=== PATIENT | male | born 1940 | race Caucasian/White ===

== ENCOUNTER 2017-03-25 14:57 | Emergency (ER) | payer MEDICARE, BC ==
--- NOTE | 2017-03-25 16:24 | EDM.PDOC ---
ED HPI GENERAL MEDICAL PROBLEM - General Chief Complaint: General Stated Complaint: LIGHTHEADED / DIZZY Time Seen by Provider: 03/25/17 16:24 Source of Information: Reports: Patient History Limitations: Reports: No limitations - History of Present Illness INITIAL COMMENTS - FREE TEXT/NARRATIVE: pt was very mildly dizzy. The home health care told him he was having some mild bp elevation. Onset: today Duration: Minutes:, Other ( he does feel better now. ) Location: Reports: head, other (pt is mildly lit headed. ) Severity: mild Associated Symptoms: Reports: denies other symptoms - Related Data Allergies Allergy/AdvReac Type Severity Reaction Status Date / Time No Known Allergies Allergy Verified 03/25/17 16:28 Home Meds: Home Meds Aspirin [Ecotrin] 81 mg PO DAILY 04/03/16 [History] Dextran 70/Hypromellose [Genteal Tears 0.1%-0.3% Drop] 1 drop EYEBOTH QID PRN [History] Finasteride 5 mg PO BEDTIME 04/03/16 [History] Latanoprost [Xalatan 0.005% Ophth Soln] 1 drop EYEBOTH BEDTIME 04/03/16 [History ] Simvastatin [Zocor] 10 mg PO DAILY 04/03/16 [History] Tamsulosin [Flomax] 2 cap PO BEDTIME 04/03/16 [History] Past Medical History HEENT History: Reports: Cataract Cardiovascular History: Reports: Hypertension Respiratory History: Reports: COPD Gastrointestinal History: Reports: Cholelithiasis, Other (see below) Other Gastrointestinal History: ulcers Genitourinary History: Reports: Prostate disorder Musculoskeletal History: Reports: Fracture Hematologic History: Reports: Bleeding disorder - Infectious Disease History Infectious Disease History: Reports: Chicken pox, Measles, Mumps, Shingles - Past Surgical History HEENT Surgical History: Reports: Cataract surgery GI Surgical History: Reports: Cholecystectomy, Other (see below) Other GI Surgeries/Procedures: partial gastrectomy, incisional hernia Musculoskeletal Surgical History: Reports: Hip replacement Dermatological Surgical History: Reports: Skin biopsy Social & Family History - Tobacco Use Smoking Status *Q: Never Smoker Years of Tobacco use: 65 - Caffeine Use Caffeine Use: Reports: Coffee - Alcohol Use Days Per Week of Alcohol Use: 1 Number of Drinks Per Day: 1 Total Drinks Per Week: 1 - Recreational Drug Use Recreational Drug Use: No ED ROS GENERAL - Review of Systems Review Of Systems: See Below Constitutional: Reports: no symptoms HEENT: Reports: No symptoms Respiratory: Reports: No Symptoms Cardiovascular: Reports: Other (pt has no chest pain. ) Endocrine: Reports: no symptoms GI/Abdominal: Reports: No symptoms : Reports: no symptoms Musculoskeletal: Reports: no symptoms Skin: Reports: no symptoms ED EXAM, GENERAL - Physical Exam Exam: See Below Free Text/Narrative:: Pt arrived with mild liteheadness. He does not have a headache. Exam Limited By: No limitations General Appearance: alert Ears: normal TMs Nose: normal inspection Throat/Mouth: Normal inspection Head: other ( no pain mild dizziness. ) Neck: normal inspection Respiratory/Chest: no respiratory distress Cardiovascular: regular rate, rhythm Peripheral Pulses: 0: carotid (L) GI/Abdominal: soft, non tender (Male) Exam: Deferred Rectal (Males) Exam: Deferred Back Exam: normal inspection Extremities: normal inspection Neurological: alert, oriented, normal cognition, other ( orthostatic bp s were obtained which showed no sig drop in bp. ) Psychiatric: tearful Course - Vital Signs Last Recorded V/S: Last Vital Signs Temp 36.4 C 03/25/17 15:21 Pulse 71 03/25/17 17:35 Resp 18 03/25/17 17:35 BP 171/101 H 03/25/17 17:35 Pulse Ox 94 L 03/25/17 17:35 Orthostatic Blood Pressure [ 157/99 Standing] Orthostatic Blood Pressure [ 169/93 Sitting] Orthostatic Blood Pressure [ 147/99 Supine] - Orders/Labs/Meds Orders: Active Orders 24 hr Category Date Time Status Cardiac Monitoring [RC] .As Directed Care 03/25/17 16:35 Active Orthostatic Vital Signs [RC] ASDIRECTED Care 03/25/17 16:35 Active UA W/MICROSCOPIC [URIN] Urgent Lab 03/25/17 16:22 Uncollected Labs: Laboratory Tests 03/25/17 03/25/17 Range/Units 16:22 16:22 WBC 5.2 (4.5-11.0) K/uL RBC 4.58 (4.30-5.90) M/uL Hgb 12.0 (12.0-15.0) g/dL Hct 37.3 L (40.0-54.0) % MCV 81 (80-98) fL MCH 26 L (27-31) pg MCHC 32 (32-36) % Plt Count 337 (150-400) K/uL Neut % (Auto) 58 (36-66) % Lymph % (Auto) 18 L (24-44) % [place] % (Auto) 14 H (2-6) % Eos % (Auto) 8 H (2-4) % Baso % (Auto) 2 H (0-1) % Sodium 134 L (140-148) mmol/L Potassium 3.5 L (3.6-5.2) mmol/L Chloride 100 (100-108) mmol/L Carbon Dioxide 30 (21-32) mmol/L Anion Gap 7.5 (5.0-14.0) mmol/L BUN 13 (7-18) mg/dL Creatinine 0.7 L (0.8-1.3) mg/dL Est Cr Clr Drug Dosing 73.50 mL/min Estimated GFR (MDRD) > 60 (>60) Glucose 55 L (74-106) mg/dL Calcium 8.0 L (8.5-10.1) mg/dL Total Bilirubin 0.3 (0.2-1.0) mg/dL AST 17 (15-37) U/L ALT 25 (12-78) U/L Alkaline Phosphatase 74 (46-116) U/L Total Protein 6.3 L (6.4-8.2) g/dL Albumin 3.3 L (3.4-5.0) g/dL Globulin 3.0 (2.3-3.5) g/dL Albumin/Globulin Ratio 1.1 L (1.2-2.2) - Re-Assessments/Exams Free Text/Narrative Re-Assessment/Exam: 03/25/17 17:32 pt has normal lab work. He is in a sinus rhythm. He was ambulated and did well with it. Departure - Departure Time of Disposition: 17:33 Disposition: Home, Self-Care 01 Condition: fair Clinical Impression: Borderline blood pressure Referrals: Jayleen Palmer PA-C [Primary Care Provider] - Forms: ED Department Discharge Care Plan Goals: [facility] the [facility] - My Orders Last 24 Hours: My Active Orders 03/25/17 16:22 UA W/MICROSCOPIC [URIN] Urgent 03/25/17 16:35 Cardiac Monitoring [RC] .As Directed Orthostatic Vital Signs [RC] ASDIRECTED - Assessment/Plan Last 24 Hours: My Active Orders 03/25/17 16:22 UA W/MICROSCOPIC [URIN] Urgent 03/25/17 16:35 Cardiac Monitoring [RC] .As Directed Orthostatic Vital Signs [RC] ASDIRECTED
[2017-03-25 17:35] VITALS: BP 171/101
== END 2017-03-25 18:24 | disposition home or self-care (01) ==
LOC: JP.ED 14:57
DX: R03.0 Elevated blood-pressure reading, without diagnosis of hypertension (principal); I10 Essential (primary) hypertension; J44.9 Chronic obstructive pulmonary disease, unspecified; Z90.49 Acquired absence of other specified parts of digestive tract; Z98.890 Other specified postprocedural states; Z79.899 Other long term (current) drug therapy; Z79.82 Long term (current) use of aspirin
CPT/HCPCS: 36415; 80053; 81001; 85025; 99282; 99284

== ENCOUNTER 2017-09-21 02:13 | Inpatient (IN) | payer MEDICARE, BC ==
[2017-09-21] MEDS ORDERED: Albuterol 0.083% 2.5 MG/3 ML Neb Soln NEB ONE ×2 (02:35→03:44)
[2017-09-21] MEDS ORDERED: methylPREDNISolone Sodium Succinate 125 MG/2 ML SDV IVPUSH ONE (02:41)
[2017-09-21] MEDS ORDERED: Sodium Chloride 0.9% 10 ML Syringe FLUSH PRN (02:42)
--- NOTE | 2017-09-21 02:44 | EDM.PDOC ---
ED HPI GENERAL MEDICAL PROBLEM - General Chief Complaint: Respiratory Problem Stated Complaint: [facility] Time Seen by Provider: 09/21/17 02:43 Source of Information: Reports: Patient History Limitations: Reports: No Limitations - History of Present Illness Onset: Other (pt was getting sob tonight. ) Duration: Hour(s): Location: Reports: Chest Associated Symptoms: Reports: Cough, Shortness of Breath denies pain Pain Score (Numeric/FACES): 0 - Related Data Allergies Allergy/AdvReac Type Severity Reaction Status Date / Time No Known Allergies Allergy Verified 09/21/17 02:19 Home Meds: Home Meds Aspirin [Ecotrin] 81 mg PO DAILY 04/03/16 [History] Finasteride 5 mg PO BEDTIME 04/03/16 [History] Latanoprost [Xalatan 0.005% Ophth Soln] 1 drop EYEBOTH BEDTIME 04/03/16 [History ] Simvastatin [Zocor] 10 mg PO BEDTIME 04/03/16 [History] Tamsulosin [Flomax] 2 cap PO BEDTIME 04/03/16 [History] Albuterol Sulfate [Proair Respiclick] 90 mcg IH Q4H PRN 09/21/17 [History] Albuterol/Ipratropium [DuoNeb 3.0-0.5 MG/3 ML] 3 ml INH Q4H PRN 09/21/17 [ History] Budesonide/Formoterol [Symbicort 160-4.5 MCG] 2 puff INH BID 09/21/17 [History] Lisinopril 10 mg PO DAILY 09/21/17 [History] Loratadine [Claritin] 10 mg PO DAILY 09/21/17 [History] guaiFENesin [Guaifenesin] 200 mg PO BID PRN 09/21/17 [History] Past Medical History HEENT History: Reports: Hard of Hearing, Impaired Vision Cardiovascular History: Reports: High Cholesterol, Hypertension Respiratory History: Reports: COPD Gastrointestinal History: Reports: Cholelithiasis, Hiatal Hernia Other Gastrointestinal History: ulcers Genitourinary History: Reports: Prostate Disorder, Renal Calculus Musculoskeletal History: Reports: Arthritis Hematologic History: Reports: Bleeding Disorder - Infectious Disease History Infectious Disease History: Reports: Chicken Pox, Measles, Mumps, Rubella, Shingles - Past Surgical History HEENT Surgical History: Reports: Cataract Surgery GI Surgical History: Reports: Appendectomy, Cholecystectomy, Colonoscopy, Hernia Repair/Other Male Surgical History: Reports: Lithotripsy (ESWL) Musculoskeletal Surgical History: Reports: Hip Replacement, Other (See Below) Other Musculoskeletal Surgeries/Procedures:: left hip replacement Dermatological Surgical History: Reports: Skin Biopsy Social & Family History - Tobacco Use Smoking Status *Q: Former Smoker Years of Tobacco use: 65 Used Tobacco, but Quit: Yes Month Tobacco Last Used: May 25 2015 - Caffeine Use Caffeine Use: Reports: Coffee - Alcohol Use Days Per Week of Alcohol Use: 1 Number of Drinks Per Day: 1 Total Drinks Per Week: 1 - Recreational Drug Use Recreational Drug Use: No ED ROS GENERAL - Review of Systems Review Of Systems: See Below Constitutional: Reports: No Symptoms, Chills HEENT: Reports: No Symptoms Respiratory: Reports: Shortness of Breath, Wheezing, Cough, Sputum Cardiovascular: Reports: No Symptoms Endocrine: Reports: No Symptoms GI/Abdominal: Reports: No Symptoms : Reports: No Symptoms ED EXAM, GENERAL - Physical Exam Exam: See Below Free Text/Narrative:: pt arrived with a history of sob and raising alot of sputum in the past few hours. The sputum is very green looking. He has a history of copd. Exam Limited By: No Limitations General Appearance: Alert, Mild Distress Ears: Normal TMs Nose: Normal Inspection Throat/Mouth: Normal Inspection Head: Atraumatic Neck: Normal Inspection Respiratory/Chest: Decreased Breath Sounds, Rhonchi, Wheezing Cardiovascular: Regular Rate, Rhythm GI/Abdominal: Soft, Non-Tender (Male) Exam: Deferred Rectal (Males) Exam: Deferred Back Exam: Normal Inspection Extremities: Other (pt has a trace edema. He does wear support hose. ) Neurological: Alert, Oriented, Normal Cognition Psychiatric: Normal Affect Course - Vital Signs Last Recorded V/S: Last Vital Signs Temp 36.0 C 09/21/17 03:54 Pulse 79 09/21/17 03:54 Resp 22 H 09/21/17 03:54 BP 131/75 09/21/17 03:54 Pulse Ox 91 L 09/21/17 03:54 - Orders/Labs/Meds Orders: Active Orders 24 hr Category Date Time Status RT Aerosol Therapy [RC] ASDIRECTED Care 09/21/17 02:36 Active RT Aerosol Therapy [RC] ASDIRECTED Care 09/21/17 03:45 Active Chest 1V Frontal [CR] Stat Exams 09/21/17 02:35 Taken CULTURE RESPIRATORY + SMEAR [RM] Stat Lab 09/21/17 03:06 Results Levofloxacin/Dextrose 5%-Water [Levaquin in D5W 500 MG/ Med 09/21/17 03:43 Active 100 ML] 500 mg Premix Bag 1 bag IV ONETIME Sodium Chloride 0.9% [Normal Saline] 1,000 ml Med 09/21/17 03:45 Active IV ASDIRECTED Sodium Chloride 0.9% [Saline Flush] Med 09/21/17 02:42 Active 10 ml FLUSH ASDIRECTED PRN Saline Lock Insert [OM.PC] Routine Oth 09/21/17 02:42 Ordered Medication Orders Levofloxacin/Dextrose 500 mg/ (Premix) 100 mls @ 100 mls/hr IV ONETIME ONE Stop: 09/21/17 04:42 Last Admin: 09/21/17 04:11 Dose: 100 mls/hr Sodium Chloride (Normal Saline) 1,000 mls @ 150 mls/hr IV ASDIRECTED CHAYITO Last Admin: 09/21/17 04:10 Dose: 150 mls/hr Sodium Chloride (Saline Flush) 10 ml FLUSH ASDIRECTED PRN PRN Reason: Keep Vein Open Last Admin: 09/21/17 02:59 Dose: 10 ml Labs: Laboratory Tests 09/21/17 09/21/17 Range/Units 02:50 02:50 WBC 5.7 (4.5-11.0) K/uL RBC 4.61 (4.30-5.90) M/uL Hgb 12.6 (12.0-15.0) g/dL Hct 39.0 L (40.0-54.0) % MCV 85 (80-98) fL MCH 27 (27-31) pg MCHC 32 (32-36) % Plt Count 273 (150-400) K/uL Neut % (Auto) 68 H (36-66) % Lymph % (Auto) 13 L (24-44) % [place] % (Auto) 7 H (2-6) % Eos % (Auto) 11 H (2-4) % Baso % (Auto) 1 (0-1) % Sodium 135 L (140-148) mmol/L Potassium 4.2 (3.6-5.2) mmol/L Chloride 98 L (100-108) mmol/L Carbon Dioxide 31 (21-32) mmol/L Anion Gap 10.2 (5.0-14.0) mmol/L BUN 13 (7-18) mg/dL Creatinine 0.8 (0.8-1.3) mg/dL Est Cr Clr Drug Dosing 61.25 mL/min Estimated GFR (MDRD) > 60 (>60) Glucose 116 H (74-106) mg/dL Calcium 8.7 (8.5-10.1) mg/dL Total Bilirubin 0.4 (0.2-1.0) mg/dL AST 19 (15-37) U/L ALT 24 (12-78) U/L Alkaline Phosphatase 78 (46-116) U/L Total Protein 6.7 (6.4-8.2) g/dL Albumin 3.5 (3.4-5.0) g/dL Globulin 3.2 (2.3-3.5) g/dL Albumin/Globulin Ratio 1.1 L (1.2-2.2) Meds: Medications Generic Name Dose Route Start Last Admin Trade Name Freq PRN Reason Stop Dose Admin Levofloxacin/Dextrose 500 mg/ 100 mls @ 100 mls/hr 09/21/17 03:43 09/21/17 04 :11 Premix IV 09/21/17 04:42 100 mls/hr ONETIME ONE Administration Sodium Chloride 1,000 mls @ 150 mls/hr 09/21/17 03:45 09/21/17 04:10 Normal Saline IV 150 mls/hr ASDIRECTED CHAYITO Administration Sodium Chloride 10 ml 09/21/17 02:42 09/21/17 02:59 Saline Flush FLUSH 10 ml ASDIRECTED PRN Administration Keep Vein Open Discontinued Medications Generic Name Dose Route Start Last Admin Trade Name Freq PRN Reason Stop Dose Admin Albuterol 2.5 mg 09/21/17 02:35 09/21/17 02:44 Proventil Neb Soln NEB 09/21/17 02:36 2.5 mg ONETIME ONE Administration Albuterol 2.5 mg 09/21/17 03:44 09/21/17 04:00 Proventil Neb Soln NEB 09/21/17 03:45 2.5 mg ONETIME ONE Administration Methylprednisolone Sodium Succinate 125 mg 10/31/17 02:41 09/21/17 02:59 Solu-Medrol IVPUSH 09/21/17 02:42 125 mg ONETIME ONE Administration - Re-Assessments/Exams Free Text/Narrative Re-Assessment/Exam: 09/21/17 03:41 Pt was given solumedrol 125 iv and he was given an albuterol neb. He is breathing easier. His chest xray does not reveal a definite infiltrate. He has a wbc which is not sig elevated. His o2 sats are mantaining. 09/21/17 04:22 [facility] stay for his copd he will be admitted here. Departure - Departure Time of Disposition: 04:23 Disposition: Admitted As Inpatient 65 Condition: Fair Clinical Impression: COPD (chronic obstructive pulmonary disease) with acute bronchitis - Discharge Information Referrals: PCP,None [Primary Care Provider] - Forms: ED Department Discharge Care Plan Goals: admit to [facility] - My Orders Last 24 Hours: My Active Orders 09/21/17 02:35 Chest 1V Frontal [CR] Stat 09/21/17 02:36 RT Aerosol Therapy [RC] ASDIRECTED 09/21/17 02:42 Sodium Chloride 0.9% [Saline Flush] 10 ml FLUSH ASDIRECTED PRN Saline Lock Insert [OM.PC] Routine 09/21/17 03:06 CULTURE RESPIRATORY + SMEAR [RM] Stat 09/21/17 03:43 Levofloxacin/Dextrose 5%-Water [Levaquin in D5W 500 MG/100 ML] 500 mg Premix Bag 1 bag IV ONETIME 09/21/17 03:45 RT Aerosol Therapy [RC] ASDIRECTED Sodium Chloride 0.9% [Normal Saline] 1,000 ml IV ASDIRECTED - Assessment/Plan Last 24 Hours: My Active Orders 09/21/17 02:35 Chest 1V Frontal [CR] Stat 09/21/17 02:36 RT Aerosol Therapy [RC] ASDIRECTED 09/21/17 02:42 Sodium Chloride 0.9% [Saline Flush] 10 ml FLUSH ASDIRECTED PRN Saline Lock Insert [OM.PC] Routine 09/21/17 03:06 CULTURE RESPIRATORY + SMEAR [RM] Stat 09/21/17 03:43 Levofloxacin/Dextrose 5%-Water [Levaquin in D5W 500 MG/100 ML] 500 mg Premix Bag 1 bag IV ONETIME 09/21/17 03:45 RT Aerosol Therapy [RC] ASDIRECTED Sodium Chloride 0.9% [Normal Saline] 1,000 ml IV ASDIRECTED
[2017-09-21] MEDS ORDERED: Levofloxacin/Dextrose 5%-Water 500 MG in Premix Bag 1 BAG IV ONE (03:43)
[2017-09-21] MEDS ORDERED: Sodium Chloride 0.9% 1,000 ML IV SCH ×2 (03:45→05:50)
--- NOTE | 2017-09-21 05:48 | PCM.HP ---
H&P History of Present Illness - General Date of Service: 09/21/17 Admit Problem/Dx: Admission Diagnosis/Problem Admission Diagnosis/Problem COPD, Moderate chronic obstructive pulmonary disease Source of Information: Patient, Provider, RN History Limitations: Reports: No Limitations - History of Present Illness Initial Comments - Free Text/Narative: ER Course pt arrived with a history of sob and raising a lot of sputum in the past few hours. The sputum is very green looking. He has a history of copd. General Appearance: Alert, Mild Distress Pt was given solumedrol 125 iv and he was given an albuterol neb. He is breathing easier. His chest xray does not reveal a definite infiltrate. He has a wbc which is not sig elevated. His o2 sats are maintaining. [facility] and since this may be a short stay for his copd he will be admitted here. Onset of Symptoms: Reports: Sudden Duration of Symptoms: Reports: Hour(s):, Getting Worse Location: Reports: Generalized Quality: Reports: Other (shortness of breath) Severity: Severe Improves with: Reports: None Worsens with: Reports: None Associated Symptoms: Reports: Cough, Shortness of Breath, Weakness denies pain Pain Score (Numeric/FACES): 0 - Related Data Allergies/Adverse Reactions: Allergies Allergy/AdvReac Type Severity Reaction Status Date / Time No Known Allergies Allergy Verified 09/21/17 02:19 Home Medications: Home Meds Aspirin [Ecotrin] 81 mg PO DAILY 04/03/16 [History] Finasteride 5 mg PO BEDTIME 04/03/16 [History] Latanoprost [Xalatan 0.005% Ophth Soln] 1 drop EYEBOTH BEDTIME 04/03/16 [History ] Simvastatin [Zocor] 10 mg PO BEDTIME 04/03/16 [History] Tamsulosin [Flomax] 2 cap PO BEDTIME 04/03/16 [History] Albuterol Sulfate [Proair Respiclick] 90 mcg IH Q4H PRN 09/21/17 [History] Albuterol/Ipratropium [DuoNeb 3.0-0.5 MG/3 ML] 3 ml INH Q4H PRN 09/21/17 [ History] Budesonide/Formoterol [Symbicort 160-4.5 MCG] 2 puff INH BID 09/21/17 [History] Lisinopril 10 mg PO DAILY 09/21/17 [History] Loratadine [Claritin] 10 mg PO DAILY 09/21/17 [History] guaiFENesin [Guaifenesin] 200 mg PO BID PRN 09/21/17 [History] Past Medical History HEENT History: Reports: Hard of Hearing, Impaired Vision Cardiovascular History: Reports: High Cholesterol, Hypertension Respiratory History: Reports: COPD Gastrointestinal History: Reports: Cholelithiasis, Hiatal Hernia Other Gastrointestinal History: ulcers Genitourinary History: Reports: Prostate Disorder, Renal Calculus Musculoskeletal History: Reports: Arthritis Hematologic History: Reports: Bleeding Disorder - Infectious Disease History Infectious Disease History: Reports: Chicken Pox, Measles, Mumps, Rubella, Shingles - Past Surgical History HEENT Surgical History: Reports: Cataract Surgery GI Surgical History: Reports: Appendectomy, Cholecystectomy, Colonoscopy, Hernia Repair/Other Male Surgical History: Reports: Lithotripsy (ESWL) Musculoskeletal Surgical History: Reports: Hip Replacement, Other (See Below) Other Musculoskeletal Surgeries/Procedures:: left hip replacement Dermatological Surgical History: Reports: Skin Biopsy Social & Family History - Tobacco Use Smoking Status *Q: Former Smoker Years of Tobacco use: 65 Used Tobacco, but Quit: Yes Month Tobacco Last Used: May 25 2015 - Caffeine Use Caffeine Use: Reports: Coffee - Alcohol Use Days Per Week of Alcohol Use: 1 Number of Drinks Per Day: 1 Total Drinks Per Week: 1 - Recreational Drug Use Recreational Drug Use: No - Living Situation & Occupation Living situation: Reports: Single, Alone Occupation: Retired (lives alone in [place], [place].) H&P Review of Systems - Review of Systems: Review Of Systems: See Below General: Reports: Weakness, Fatigue HEENT: Reports: No Symptoms Pulmonary: Reports: Shortness of Breath, Wheezing, Pleuritic Chest Pain, Cough, Sputum Cardiovascular: Reports: No Symptoms Gastrointestinal: Reports: No Symptoms Genitourinary: Reports: No Symptoms Musculoskeletal: Reports: No Symptoms Skin: Reports: No Symptoms Psychiatric: Reports: No Symptoms Neurological: Reports: No Symptoms Hematologic/Lymphatic: Reports: No Symptoms Immunologic: Reports: No Symptoms Exam - Exam Exam: See Below - Vital Signs Vital Signs: Last Vital Signs Temp 36.0 C 09/21/17 03:54 Pulse 79 09/21/17 03:54 Resp 22 H 09/21/17 03:54 BP 131/75 09/21/17 03:54 Pulse Ox 91 L 09/21/17 03:54 Weight: 58.967 kg - Exam Quality Assessment: Supplemental Oxygen, DVT Prophylaxis General: Alert, Oriented, Cooperative, Mild Distress HEENT: PERRLA, Conjunctiva Clear, Hearing Intact, Mucosa Moist & [place], Nares Patent, Pupils Equal Neck: Supple, Trachea Midline Lungs: Decreased Breath Sounds, Rales, Rhonchi, Wheezing Cardiovascular: Regular Rate, Regular Rhythm, Normal S1, Normal S2 GI/Abdominal Exam: Normal Bowel Sounds, Soft, Non-Tender, No Organomegaly, No Distention, No Abnormal Bruit, No Mass, Pelvis Stable (Male) Exam: Deferred Rectal (Males) Exam: Deferred Back Exam: Normal Inspection, Full Range of Motion Extremities: Non-Tender, No Pedal Edema, Normal Capillary Refill - Patient Data Lab Results Last 24 hrs: Laboratory Results - last 24 hr 09/21/17 09/21/17 Range/Units 02:50 02:50 WBC 5.7 (4.5-11.0) K/uL RBC 4.61 (4.30-5.90) M/uL Hgb 12.6 (12.0-15.0) g/dL Hct 39.0 L (40.0-54.0) % MCV 85 (80-98) fL MCH 27 (27-31) pg MCHC 32 (32-36) % Plt Count 273 (150-400) K/uL Neut % (Auto) 68 H (36-66) % Lymph % (Auto) 13 L (24-44) % [place] % (Auto) 7 H (2-6) % Eos % (Auto) 11 H (2-4) % Baso % (Auto) 1 (0-1) % Sodium 135 L (140-148) mmol/L Potassium 4.2 (3.6-5.2) mmol/L Chloride 98 L (100-108) mmol/L Carbon Dioxide 31 (21-32) mmol/L Anion Gap 10.2 (5.0-14.0) mmol/L BUN 13 (7-18) mg/dL Creatinine 0.8 (0.8-1.3) mg/dL Est Cr Clr Drug Dosing 61.25 mL/min Estimated GFR (MDRD) > 60 (>60) Glucose 116 H (74-106) mg/dL Calcium 8.7 (8.5-10.1) mg/dL Total Bilirubin 0.4 (0.2-1.0) mg/dL AST 19 (15-37) U/L ALT 24 (12-78) U/L Alkaline Phosphatase 78 (46-116) U/L Total Protein 6.7 (6.4-8.2) g/dL Albumin 3.5 (3.4-5.0) g/dL Globulin 3.2 (2.3-3.5) g/dL Albumin/Globulin Ratio 1.1 L (1.2-2.2) Result Diagrams: 09/21/17 02:50 09/21/17 02:50 Jarek Results Last 24 hrs: Microbiology 09/21/17 03:06 Gram Stain - Final Sputum - Expectorated *Q Meaningful Use (ADM) - VTE *Q VTE Criteria *Q: - Stroke *Q Stroke Criteria *Q: - AMI *Q AMI Criteria *Q: - Problem List (1) COPD (chronic obstructive pulmonary disease) with acute bronchitis SNOMED Code(s): 639523018382866 ICD Code: J44.0 - CHRONIC OBSTRUCTIVE PULMON DISEASE W ACUTE LOWER RESP INFCT ; J20.9 - ACUTE BRONCHITIS, UNSPECIFIED Status: Acute Priority: High Current Visit: Yes Problem List Initiated/Reviewed/Updated: Yes Orders Last 24hrs: Active Orders 24 hr Category Date Time Status Patient Status Manage Transfer [TRANSFER] Routine ADT 09/21/17 05:14 Active RT Aerosol Therapy [RC] ASDIRECTED Care 09/21/17 02:36 Active RT Aerosol Therapy [RC] ASDIRECTED Care 09/21/17 03:45 Active Chest 1V Frontal [CR] Stat Exams 09/21/17 02:35 Taken CULTURE RESPIRATORY + SMEAR [RM] Stat Lab 09/21/17 03:06 Results Sodium Chloride 0.9% [Normal Saline] 1,000 ml Med 09/21/17 03:45 Active IV ASDIRECTED Sodium Chloride 0.9% [Saline Flush] Med 09/21/17 02:42 Active 10 ml FLUSH ASDIRECTED PRN Saline Lock Insert [OM.PC] Routine Oth 09/21/17 02:42 Ordered Resuscitation Status Routine Resus Stat 09/21/17 05:17 Ordered Medication Orders Sodium Chloride (Normal Saline) 1,000 mls @ 150 mls/hr IV ASDIRECTED CHAYITO Last Admin: 09/21/17 04:10 Dose: 150 mls/hr Sodium Chloride (Saline Flush) 10 ml FLUSH ASDIRECTED PRN PRN Reason: Keep Vein Open Last Admin: 09/21/17 02:59 Dose: 10 ml Assessment/Plan Comment:: ASSESSMENT AND PLAN ER Course; pt arrived with a history of sob and raising a lot of sputum in the past few hours. The sputum is very green looking. He has a history of copd. General Appearance: Alert, Mild Distress. Pt was given solumedrol 125 IV and he was given an albuterol neb. He is breathing easier. His chest xray does not reveal a definite infiltrate. He has a wbc which is not sig elevated. His o2 sats are maintaining. [facility] was contacted and okay to treat here for COPD. COPD -Admit to [address] [place] [address] for further monitoring -IV Fluids for rehydration NS at 125 mL per hour -IV Antibiotic; Levoquin 1 gram IV every 24 hours -IV Solumedrol 62.5mg every 8 hours -schedule Duo Nebs treatment every 6 hours -prn Albuterol nebulizer -Robitussin AC 10 ml po every 4 to 6 hours prn cough -Advise to notify nurses of any chest pain or other symptoms Maintenance issues -Orders home meds: order -Nutrition: regular diet -Reyna catheter not indicated at this time -DVT: Lovonox 30mg subcut daily -PPI; IV Protonix 40mg daily -consult OT for discharge planning -consult PT for strengthening. CODE STATUS: FULL Admission status: Admit to [address] [place] [address] Admission justification. This patient will be admitted for inpatient services and is medically appropriate meeting medical necessity for inpatient admission as outlined in my documentation. I reasonably expect the patient will require inpatient services that span. Time over 2 midnights. I reasonably expect this patient to be discharged or transferred within 96 hours after admission to the critical access hospital. Disposition; home Primary care provider: [facility] Hospitalist: Dr. Jiménez
[2017-09-21] MEDS ORDERED: Albuterol 0.083% 2.5 MG/3 ML Neb Soln NEB PRN ×2 (05:50)
[2017-09-21] MEDS ORDERED: Morphine 2 MG/ML Syringe IVPUSH PRN (05:50)
[2017-09-21] MEDS ORDERED: Ondansetron 4 MG Tab.DIS PO PRN (05:50)
[2017-09-21] MEDS ORDERED: Docusate Sodium 100 MG Cap PO PRN (05:50)
[2017-09-21] MEDS ORDERED: Zolpidem 5 MG Tab PO PRN (05:50)
[2017-09-21] MEDS ORDERED: oxyCODONE 5 MG Tab PO PRN (05:50)
[2017-09-21] MEDS ORDERED: Bisacodyl 5 MG Tab PO PRN (05:50)
[2017-09-21] MEDS ORDERED: Codeine/guaiFENesin 100mg-10 MG/5 ML Syrup 10 ML Cup PO PRN (05:58)
[2017-09-21] MEDS ORDERED: Albuterol/Ipratropium 3.0-0.5 MG/3 ML Neb Soln NEB PRN ×2 (06:00→07:18)
[2017-09-21] MEDS ORDERED: Pantoprazole 40 MG Vial IVPUSH SCH (07:30)
[2017-09-21] MEDS: Albuterol/Ipratropium 3.0-0.5 MG/3 ML Neb Soln NEB SCH ×4 (07:35→20:38)
[2017-09-21] MEDS: Tiotropium Inhaler 18 MCG Inhalation Powder Cap Kit of 5 INH SCH (08:21)
[2017-09-21] MEDS: methylPREDNISolone Sodium Succinate 125 MG/2 ML SDV IVPUSH SCH ×2 (08:28→15:47)
[2017-09-21] MEDS: Lisinopril 10 MG Tab PO SCH (08:28)
[2017-09-21] MEDS: Pantoprazole 40 MG Tab.CR PO SCH (08:28)
[2017-09-21] MEDS: Enoxaparin 40 MG/0.4 ML Syringe SUBCUT SCH (08:28)
--- NOTE | 2017-09-21 08:28 | CR ---
Chest 1V Frontal HISTORY: sob COMPARISON: 03/02/2009 FINDINGS: Lungs appear clear and mildly hyperinflated. Cardiomediastinal silhouette is within normal limits. No vascular redistribution or pleural fluid can be seen. Bony structures and soft tissues are unremarka ble. IMPRESSION: Mild hyperinflation. No acute chest abnormality identified.
[2017-09-21] MEDS ORDERED: methylPREDNISolone Sodium Succinate 40 MG/1 ML SDV IV SCH (08:30)
[2017-09-21] MEDS ORDERED: Enoxaparin 30 MG/0.3 ML Syringe SUBCUT SCH (09:00)
[2017-09-21] MEDS: Acetaminophen 325 MG Tab PO PRN ×2 (10:53→20:52)
[2017-09-21] MEDS ORDERED: Melatonin 3 MG Tab PO SCH (16:30)
--- NOTE | 2017-09-21 18:44 | PCM.PN ---
- General Info Date of Service: 09/21/17 Subjective Update: This patient is a 77-year-old gentleman who was admitted with probable bronchitis causing COPD exacerbation. He's felt improved since admission with less shortness of breath and cough. Vital signs have been stable and he has remained afebrile area Functional Status: Reports: Tolerating Diet - Review of Systems General: Reports: Weakness. Denies: Fever, Chills Pulmonary: Reports: Shortness of Breath, Cough, Wheezing. Denies: Pleuritic Chest Pain, Sputum, Hemoptysis Cardiovascular: Reports: Dyspnea on Exertion. Denies: Chest Pain, Palpitations , Orthopnea, PND, Edema, Lightheadedness Gastrointestinal: Reports: No Symptoms - Patient Data Vitals - Most Recent: Last Vital Signs Temp 97.3 F 09/21/17 16:04 Pulse 87 09/21/17 16:04 Resp 18 09/21/17 16:04 BP 152/73 H 09/21/17 16:04 Pulse Ox 95 09/21/17 16:04 Weight - Most Recent: 127 lb 12.796 oz I&O - Last 24 Hours: Intake & Output 09/21/17 09/21/17 09/21/17 06:59 14:59 22:59 Intake Total 360 480 Balance 360 480 Med Orders - Current: Current Medications Acetaminophen (Tylenol) 650 mg PO Q4H PRN PRN Reason: Pain (Mild 1-3)/fever Last Admin: 09/21/17 10:53 Dose: 650 mg Albuterol (Proventil Neb Soln) 2.5 mg NEB Q4H PRN PRN Reason: Shortness Of Breath/wheezing Albuterol/Ipratropium (Duoneb 3.0-0.5 Mg/3 Ml) 3 ml NEB QIDRT [facility] Last Admin: 09/21/17 14:38 Dose: 3 ml Albuterol/Ipratropium (Duoneb 3.0-0.5 Mg/3 Ml) 3 ml NEB QID PRN PRN Reason: Shortness of Breath Albuterol/Ipratropium (Duoneb 3.0-0.5 Mg/3 Ml) 3 ml NEB ASDIRECTED PRN PRN Reason: Shortness of Breath Bisacodyl (Dulcolax) 5 mg PO DAILY PRN PRN Reason: Constipation Docusate Sodium (Colace) 100 mg PO BID PRN PRN Reason: Constipation Enoxaparin Sodium (Lovenox) 40 mg SUBCUT DAILY [facility] Last Admin: 09/21/17 08:28 Dose: 40 mg Finasteride (Proscar) 5 mg PO BEDTIME [facility] Guaifenesin/Codeine Phosphate (Robitussin Ac) 10 ml PO Q4H PRN PRN Reason: Cough Levofloxacin/Dextrose 500 mg/ (Premix) 100 mls @ 100 mls/hr IV Q24H [facility] Stop: 09/29/17 04:01 Latanoprost (Xalatan 0.005% Ophth Soln) 0 ml EYEBOTH BEDTIME [facility] Lisinopril (Prinivil) 10 mg PO DAILY [facility] Last Admin: 09/21/17 08:28 Dose: 10 mg Melatonin (Melatonin) 9 mg PO BEDTIME [facility] Methylprednisolone Sodium Succinate (Solu-Medrol) 40 mg IVPUSH Q8H [facility] Morphine Sulfate (Morphine) 2 mg IVPUSH Q2H PRN PRN Reason: Pain (severe 7-10) Ondansetron HCl (Zofran Odt) 4 mg PO Q6H PRN PRN Reason: Nausea able to take PO Oxycodone HCl (Oxycodone) 5 mg PO Q4H PRN PRN Reason: Pain (moderate 4-6) Pantoprazole Sodium (Protonix) 40 mg PO ACBREAKFAST [facility] Last Admin: 09/21/17 08:28 Dose: 40 mg Simvastatin (Zocor) 10 mg PO BEDTIME [facility] Tamsulosin HCl (Flomax) 0.8 mg PO BEDTIME [facility] Tiotropium [place] (Spiriva Handihaler) 18 mcg INH DAILY [facility] Last Admin: 09/21/17 08:21 Dose: 1 cap Discontinued Medications Albuterol (Proventil Neb Soln) 2.5 mg NEB ONETIME ONE Stop: 09/21/17 02:36 Last Admin: 09/21/17 02:44 Dose: 2.5 mg Albuterol (Proventil Neb Soln) 2.5 mg NEB ONETIME ONE Stop: 09/21/17 03:45 Last Admin: 09/21/17 04:00 Dose: 2.5 mg Levofloxacin/Dextrose 500 mg/ (Premix) 100 mls @ 100 mls/hr IV ONETIME ONE Stop: 09/21/17 04:42 Last Admin: 09/21/17 04:11 Dose: 100 mls/hr Sodium Chloride (Normal Saline) 1,000 mls @ 150 mls/hr IV ASDIRECTED [facility] Last Admin: 09/21/17 04:10 Dose: 150 mls/hr Sodium Chloride (Normal Saline) 1,000 mls @ 100 mls/hr IV ASDIRECTED [facility] Methylprednisolone Sodium Succinate (Solu-Medrol) 125 mg IVPUSH ONETIME ONE Stop: 09/21/17 02:42 Last Admin: 09/21/17 02:59 Dose: 125 mg Methylprednisolone Sodium Succinate (Solu-Medrol) 62.5 mg IVPUSH Q6H [facility] Last Admin: 09/21/17 15:47 Dose: 62.5 mg Sodium Chloride (Saline Flush) 10 ml FLUSH ASDIRECTED PRN PRN Reason: Keep Vein Open Last Admin: 09/21/17 02:59 Dose: 10 ml Zolpidem Tartrate (Ambien) 5 mg PO BEDTIME PRN PRN Reason: Sleep - Exam Quality Assessment: Supplemental Oxygen, DVT Prophylaxis General: Alert, Oriented, Cooperative, No Acute Distress Lungs: Decreased Breath Sounds, Wheezing. No: Crackles, Rales, Rhonchi Cardiovascular: Regular Rate, Regular Rhythm, No Murmurs GI/Abdominal Exam: Normal Bowel Sounds, Soft, Non-Tender, No Organomegaly, No Distention Extremities: Non-Tender, No Pedal Edema Skin: Warm, Dry, Intact - Problem List Review Problem List Initiated/Reviewed/Updated: Yes - My Orders Last 24 Hours: My Active Orders 09/21/17 18:37 Convert IV to Saline Lock [OM.PC] Routine 09/21/17 18:45 methylPREDNISolone Sod Succ [Solu-MEDROL] 40 mg IVPUSH Q8H 09/21/17 21:00 Melatonin 9 mg PO BEDTIME - Plan Plan:: ASSESSMENT AND PLAN COPD EXACERBATION SECONDARY TO BRONCHITIS-improved since admission with less shortness of breath and cough -Saline lock IV -IV Antibiotic; Levoquin 1 gram IV every 24 hours -IV Solumedrol 40 mg every 8 hours -schedule Duo Nebs treatment every 6 hours -prn Albuterol nebulizer -Robitussin AC 10 ml po every 4 to 6 hours prn cough -Advise to notify nurses of any chest pain or other symptoms Maintenance issues -Orders home meds: order -Nutrition: regular diet -Reyna catheter not indicated at this time -DVT: Lovonox 30mg subcut daily -PPI; IV Protonix 40mg daily -consult OT for discharge planning -consult PT for strengthening. CODE STATUS: FULL Admission status: Admit to [address] [place] [address] Admission justification. This patient will be admitted for inpatient services and is medically appropriate meeting medical necessity for inpatient admission as outlined in my documentation. I reasonably expect the patient will require inpatient services that span. Time over 2 midnights. I reasonably expect this patient to be discharged or transferred within 96 hours after admission to the [facility]. Disposition; home Primary care provider: [facility] Hospitalist: Dr. Jiménez
[2017-09-21] MEDS: Latanoprost 0.005% Ophth Soln 2.5 ML Bottle EYEBOTH SCH (20:51)
[2017-09-21] MEDS: Melatonin 3 MG Tab PO SCH (20:52)
[2017-09-21] MEDS: Tamsulosin 0.4 MG Cap.ER PO SCH (20:53)
[2017-09-21] MEDS: Simvastatin 20 MG Tab PO SCH (20:53)
[2017-09-21] MEDS: Finasteride 5 MG Tab PO SCH (20:53)
[2017-09-21] MEDS: methylPREDNISolone Sodium Succinate 40 MG/1 ML SDV IVPUSH SCH (22:41)
[2017-09-22] MEDS ORDERED: Levofloxacin/Dextrose 5%-Water 500 MG in Premix Bag 1 BAG IV SCH (04:00)
[2017-09-22] MEDS: Albuterol/Ipratropium 3.0-0.5 MG/3 ML Neb Soln NEB SCH ×4 (07:10→19:59)
[2017-09-22] MEDS: Pantoprazole 40 MG Tab.CR PO SCH (08:29)
[2017-09-22] MEDS: methylPREDNISolone Sodium Succinate 40 MG/1 ML SDV IVPUSH SCH (08:29)
[2017-09-22] MEDS: Lisinopril 10 MG Tab PO SCH (08:29)
[2017-09-22] MEDS: Enoxaparin 40 MG/0.4 ML Syringe SUBCUT SCH (08:30)
[2017-09-22] MEDS: Tiotropium Inhaler 18 MCG Inhalation Powder Cap Kit of 5 INH SCH (09:33)
--- NOTE | 2017-09-22 14:09 | PCM.PN ---
- General Info Date of Service: 09/22/17 Subjective Update: This patient has noted further improvement in shortness of breath and cough over the past 24 hours. He is been up ambulating without use of supplemental oxygen and his cough is essentially resolved. Still reports that he feels fairly weak and requires some assistance with transfers and ambulation. Functional Status: Reports: Pain Controlled, Tolerating Diet, Ambulating - Review of Systems General: Reports: Weakness. Denies: Fever, Chills Pulmonary: Reports: Shortness of Breath, Wheezing. Denies: Pleuritic Chest Pain , Cough, Sputum Cardiovascular: Reports: Dyspnea on Exertion. Denies: Chest Pain, Palpitations , Orthopnea, PND, Edema, Lightheadedness Gastrointestinal: Reports: No Symptoms - Patient Data Vitals - Most Recent: Last Vital Signs Temp 96.6 F 09/22/17 12:04 Pulse 98 09/22/17 12:04 Resp 16 09/22/17 12:04 BP 114/54 L 09/22/17 12:04 Pulse Ox 95 09/22/17 12:04 Weight - Most Recent: 127 lb 12.796 oz I&O - Last 24 Hours: Intake & Output 09/21/17 09/22/17 09/22/17 22:59 06:59 14:59 Intake Total 676 100 880 Balance 676 100 880 Med Orders - Current: Current Medications Acetaminophen (Tylenol) 650 mg PO Q4H PRN PRN Reason: Pain (Mild 1-3)/fever Last Admin: 09/21/17 20:52 Dose: 650 mg Albuterol (Proventil Neb Soln) 2.5 mg NEB Q4H PRN PRN Reason: Shortness Of Breath/wheezing Albuterol/Ipratropium (Duoneb 3.0-0.5 Mg/3 Ml) 3 ml NEB QIDRT [facility] Last Admin: 09/22/17 10:55 Dose: 3 ml Albuterol/Ipratropium (Duoneb 3.0-0.5 Mg/3 Ml) 3 ml NEB QID PRN PRN Reason: Shortness of Breath Albuterol/Ipratropium (Duoneb 3.0-0.5 Mg/3 Ml) 3 ml NEB ASDIRECTED PRN PRN Reason: Shortness of Breath Bisacodyl (Dulcolax) 5 mg PO DAILY PRN PRN Reason: Constipation Docusate Sodium (Colace) 100 mg PO BID PRN PRN Reason: Constipation Enoxaparin Sodium (Lovenox) 40 mg SUBCUT DAILY [facility] Last Admin: 09/22/17 08:30 Dose: 40 mg Finasteride (Proscar) 5 mg PO BEDTIME [facility] Last Admin: 09/21/17 20:53 Dose: 5 mg Guaifenesin/Codeine Phosphate (Robitussin Ac) 10 ml PO Q4H PRN PRN Reason: Cough Levofloxacin/Dextrose 500 mg/ (Premix) 100 mls @ 100 mls/hr IV Q24H [facility] Stop: 09/29/17 04:01 Last Admin: 09/22/17 03:35 Dose: 100 mls/hr Latanoprost (Xalatan 0.005% Ophth Soln) 0 ml EYEBOTH BEDTIME [facility] Last Admin: 09/21/17 20:51 Dose: 1 drop Lisinopril (Prinivil) 10 mg PO DAILY [facility] Last Admin: 09/22/17 08:29 Dose: 10 mg Melatonin (Melatonin) 9 mg PO BEDTIME [facility] Last Admin: 09/21/17 20:52 Dose: 9 mg Morphine Sulfate (Morphine) 2 mg IVPUSH Q2H PRN PRN Reason: Pain (severe 7-10) Ondansetron HCl (Zofran Odt) 4 mg PO Q6H PRN PRN Reason: Nausea able to take PO Oxycodone HCl (Oxycodone) 5 mg PO Q4H PRN PRN Reason: Pain (moderate 4-6) Pantoprazole Sodium (Protonix) 40 mg PO ACBREAKFAST [facility] Last Admin: 09/22/17 08:29 Dose: 40 mg Prednisone (Prednisone) 40 mg PO DAILY [facility] Simvastatin (Zocor) 10 mg PO BEDTIME [facility] Last Admin: 09/21/17 20:53 Dose: 10 mg Tamsulosin HCl (Flomax) 0.8 mg PO BEDTIME [facility] Last Admin: 09/21/17 20:53 Dose: 0.8 mg Tiotropium [place] (Spiriva Handihaler) 18 mcg INH DAILY [facility] Last Admin: 09/22/17 09:33 Dose: 1 cap Discontinued Medications Albuterol (Proventil Neb Soln) 2.5 mg NEB ONETIME ONE Stop: 09/21/17 02:36 Last Admin: 09/21/17 02:44 Dose: 2.5 mg Albuterol (Proventil Neb Soln) 2.5 mg NEB ONETIME ONE Stop: 09/21/17 03:45 Last Admin: 09/21/17 04:00 Dose: 2.5 mg Levofloxacin/Dextrose 500 mg/ (Premix) 100 mls @ 100 mls/hr IV ONETIME ONE Stop: 09/21/17 04:42 Last Admin: 09/21/17 04:11 Dose: 100 mls/hr Sodium Chloride (Normal Saline) 1,000 mls @ 150 mls/hr IV ASDIRECTED [facility] Last Admin: 09/21/17 04:10 Dose: 150 mls/hr Sodium Chloride (Normal Saline) 1,000 mls @ 100 mls/hr IV ASDIRECTED [facility] Methylprednisolone Sodium Succinate (Solu-Medrol) 125 mg IVPUSH ONETIME ONE Stop: 09/21/17 02:42 Last Admin: 09/21/17 02:59 Dose: 125 mg Methylprednisolone Sodium Succinate (Solu-Medrol) 62.5 mg IVPUSH Q6H [facility] Last Admin: 09/21/17 15:47 Dose: 62.5 mg Methylprednisolone Sodium Succinate (Solu-Medrol) 40 mg IVPUSH Q8H [facility] Last Admin: 09/22/17 08:29 Dose: 40 mg Sodium Chloride (Saline Flush) 10 ml FLUSH ASDIRECTED PRN PRN Reason: Keep Vein Open Last Admin: 09/21/17 02:59 Dose: 10 ml Zolpidem Tartrate (Ambien) 5 mg PO BEDTIME PRN PRN Reason: Sleep - Exam General: Alert, Oriented, Cooperative, No Acute Distress Lungs: Decreased Breath Sounds, Wheezing. No: Crackles, Rales, Rhonchi, Rub Cardiovascular: Regular Rate, Regular Rhythm, No Murmurs GI/Abdominal Exam: Normal Bowel Sounds, Soft, Non-Tender, No Organomegaly, No Distention Extremities: Non-Tender, No Pedal Edema Skin: Warm, Dry, Intact - Problem List Review Problem List Initiated/Reviewed/Updated: Yes - My Orders Last 24 Hours: My Active Orders 09/21/17 18:37 Convert IV to Saline Lock [OM.PC] Routine 09/21/17 21:00 Melatonin 9 mg PO BEDTIME 09/22/17 14:15 Levofloxacin [Levaquin] 500 mg PO Q24H 09/23/17 09:00 predniSONE 40 mg PO DAILY - Plan Plan:: ASSESSMENT AND PLAN COPD EXACERBATION SECONDARY TO BRONCHITIS-improved since admission with less shortness of breath and cough, no significant temperature elevation thus far -Saline lock IV -Levaquin 500 mg by mouth daily -Prednisone 40 mg by mouth daily -schedule Duo Nebs treatment every 6 hours -prn Albuterol nebulizer -Robitussin AC 10 ml po every 4 to 6 hours prn cough -Advise to notify nurses of any chest pain or other symptoms Maintenance issues -Orders home meds: order -Nutrition: regular diet -Reyna catheter not indicated at this time -DVT: Lovonox 30mg subcut daily -PPI; IV Protonix 40mg daily -consult OT for discharge planning -consult PT for strengthening. CODE STATUS: FULL Admission status: Admit to [address] [place] [address]. This patient will be admitted for inpatient services and is medically appropriate meeting medical necessity for inpatient admission as outlined in my documentation. I reasonably expect the patient will require inpatient services that span. Time over 2 midnights. I reasonably expect this patient to be discharged or transferred within 96 hours after admission to the [facility] [place] [facility]. Disposition; home Primary care provider: [facility] Hospitalist: Dr. Jiménez
[2017-09-22] MEDS ORDERED: Levofloxacin 500 MG Tab PO SCH (16:00)
[2017-09-22] MEDS: Tamsulosin 0.4 MG Cap.ER PO SCH (19:59)
[2017-09-22] MEDS: Melatonin 3 MG Tab PO SCH (19:59)
[2017-09-22] MEDS: Latanoprost 0.005% Ophth Soln 2.5 ML Bottle EYEBOTH SCH (20:00)
[2017-09-22] MEDS: Finasteride 5 MG Tab PO SCH (20:00)
[2017-09-22] MEDS: Simvastatin 20 MG Tab PO SCH (20:00)
[2017-09-22] MEDS: Acetaminophen 325 MG Tab PO PRN (20:17)
[2017-09-23] MEDS: Albuterol/Ipratropium 3.0-0.5 MG/3 ML Neb Soln NEB SCH ×2 (07:16→10:45)
[2017-09-23] MEDS: Enoxaparin 40 MG/0.4 ML Syringe SUBCUT SCH (08:00)
[2017-09-23] MEDS: Pantoprazole 40 MG Tab.CR PO SCH (08:00)
[2017-09-23] MEDS: Lisinopril 10 MG Tab PO SCH (08:00)
[2017-09-23] MEDS: Tiotropium Inhaler 18 MCG Inhalation Powder Cap Kit of 5 INH SCH (08:15)
[2017-09-23] MEDS ORDERED: predniSONE 20 MG Tab PO SCH (09:00)
--- NOTE | 2017-09-23 10:39 | PCM.DCSUM1 ---
Discharge Summary - Hospital Course Brief History: Mr. Muñoz is a 77-year-old gentleman who was admitted through the emergency department with increased shortness of breath and cough secondary to bronchitis and COPD exacerbation. - Discharge Data Discharge Date: 09/23/17 Discharge Disposition: Home, W Home Health Agency 06 Condition: Fair - Discharge Diagnosis/Problem(s) (1) COPD exacerbation SNOMED Code(s): 677423238 ICD Code: J44.1 - CHRONIC OBSTRUCTIVE PULMONARY DISEASE W (ACUTE) EXACERBATION Status: Acute Current Visit: Yes (2) COPD (chronic obstructive pulmonary disease) with acute bronchitis SNOMED Code(s): 299980204190166 ICD Code: J44.0 - CHRONIC OBSTRUCTIVE PULMON DISEASE W ACUTE LOWER RESP INFCT ; J20.9 - ACUTE BRONCHITIS, UNSPECIFIED Status: Acute Priority: High Current Visit: Yes - Patient Summary/Data Consults: Consultations 09/21/17 05:50 Consult to Spiritual Care [CONS] Routine OT Evaluation and Treatment [CONS] Routine Please Evaluate and Treat. OT Reason for Consult: Discharge Planning This query below is only for informational purposes and is not editable. PT Evaluation and Treatment [CONS] Routine Please Evaluate and Treat. PT Reason for Consult: Ambulation This query below is only for informational purposes and is not editable. Hospital Course: Mr. Muñoz is a 77-year-old gentleman with a known history of COPD. Prior to admission developed increased shortness of breath and cough. On evaluation in the emergency department there was no evidence of infiltrate or pneumonia on chest x-ray. Cell count was within normal range and he had no significant temperature elevation. He was felt to have probable COPD exacerbation secondary to bronchitis, viral versus bacterial. On admission he was given IV fluids for hydration, sputum culture was obtained which later grew out Citrobacter sensitive to multiple medications. He was given IV antibiotic therapy with Rocephin as well as nebulizer therapy and IV Solu-Medrol. Over the next few days of his hospitalization he improved significantly and was close to baseline by the time of discharge. Cough and essentially resolved and he reported no further significant shortness of breath. He will be discharged home on oral antibiotic therapy with cephalexin 500 mg 3 times daily for an additional 4 days and prednisone 20 mg daily for an additional 3 days. Activity will be as tolerated and he will resume his usual diet. Because of some ongoing weakness he will be seen and followed at home by home care and a follow-up appointment will be scheduled with his primary care provider at the [facility] in [place] within one week. - Patient Instructions Diet: Usual Diet as Tolerated Activity: As Tolerated Other/Special Instructions: Please arrange for home care follow-up after discharge. Please schedule follow-up appointment with primary care provider at the [facility] within 1 week. - Discharge Plan Prescriptions/Med Rec: Cephalexin 500 mg PO TID #12 tablet Prednisone [IJD: predniSONE] 20 mg PO DAILY #3 tablet Home Medications: Home Meds Aspirin [Ecotrin] 81 mg PO DAILY 04/03/16 [History] Finasteride 5 mg PO BEDTIME 04/03/16 [History] Latanoprost [Xalatan 0.005% Ophth Soln] 1 drop EYEBOTH BEDTIME 04/03/16 [History ] Simvastatin [Zocor] 10 mg PO BEDTIME 04/03/16 [History] Tamsulosin [Flomax] 2 cap PO BEDTIME 04/03/16 [History] Albuterol Sulfate [Proair Respiclick] 90 mcg IH Q4H PRN 09/21/17 [History] Albuterol/Ipratropium [DuoNeb 3.0-0.5 MG/3 ML] 3 ml INH Q4H PRN 09/21/17 [ History] Budesonide/Formoterol [Symbicort 160-4.5 MCG] 2 puff INH BID 09/21/17 [History] Lisinopril 10 mg PO DAILY 09/21/17 [History] Loratadine [Claritin] 10 mg PO DAILY 09/21/17 [History] guaiFENesin [Guaifenesin] 200 mg PO BID PRN 09/21/17 [History] Cephalexin 500 mg PO TID #12 tablet 09/23/17 [Rx] Prednisone [IJD: predniSONE] 20 mg PO DAILY #3 tablet 09/23/17 [Rx] Referrals: PCP,None [Primary Care Provider] - - Patient Data Vitals - Most Recent: Last Vital Signs Temp 97.1 F 09/23/17 07:00 Pulse 68 09/23/17 07:20 Resp 18 09/23/17 07:00 BP 149/81 H 09/23/17 08:00 Pulse Ox 96 09/23/17 07:20 Weight - Most Recent: 127 lb 12.796 oz I&O - Last 24 hours: Intake & Output 09/22/17 09/23/17 09/23/17 22:59 06:59 14:59 Intake Total 480 Balance 480 Med Orders - Current: Current Medications Acetaminophen (Tylenol) 650 mg PO Q4H PRN PRN Reason: Pain (Mild 1-3)/fever Last Admin: 09/22/17 20:17 Dose: 650 mg Albuterol (Proventil Neb Soln) 2.5 mg NEB Q4H PRN PRN Reason: Shortness Of Breath/wheezing Albuterol/Ipratropium (Duoneb 3.0-0.5 Mg/3 Ml) 3 ml NEB QIDRT [facility] Last Admin: 09/23/17 07:16 Dose: 3 ml Albuterol/Ipratropium (Duoneb 3.0-0.5 Mg/3 Ml) 3 ml NEB QID PRN PRN Reason: Shortness of Breath Albuterol/Ipratropium (Duoneb 3.0-0.5 Mg/3 Ml) 3 ml NEB ASDIRECTED PRN PRN Reason: Shortness of Breath Bisacodyl (Dulcolax) 5 mg PO DAILY PRN PRN Reason: Constipation Docusate Sodium (Colace) 100 mg PO BID PRN PRN Reason: Constipation Enoxaparin Sodium (Lovenox) 40 mg SUBCUT DAILY [facility] Last Admin: 09/23/17 08:00 Dose: 40 mg Finasteride (Proscar) 5 mg PO BEDTIME [facility] Last Admin: 09/22/17 20:00 Dose: 5 mg Guaifenesin/Codeine Phosphate (Robitussin Ac) 10 ml PO Q4H PRN PRN Reason: Cough Latanoprost (Xalatan 0.005% Ophth Soln) 0 ml EYEBOTH BEDTIME [facility] Last Admin: 09/22/17 20:00 Dose: 1 drop Levofloxacin (Levaquin) 500 mg PO Q24H [facility] Last Admin: 09/22/17 15:33 Dose: 500 mg Lisinopril (Prinivil) 10 mg PO DAILY [facility] Last Admin: 09/23/17 08:00 Dose: 10 mg Melatonin (Melatonin) 9 mg PO BEDTIME [facility] Last Admin: 09/22/17 19:59 Dose: 9 mg Morphine Sulfate (Morphine) 2 mg IVPUSH Q2H PRN PRN Reason: Pain (severe 7-10) Ondansetron HCl (Zofran Odt) 4 mg PO Q6H PRN PRN Reason: Nausea able to take PO Oxycodone HCl (Oxycodone) 5 mg PO Q4H PRN PRN Reason: Pain (moderate 4-6) Pantoprazole Sodium (Protonix) 40 mg PO ACBREAKFAST [facility] Last Admin: 09/23/17 08:00 Dose: 40 mg Prednisone (Prednisone) 40 mg PO DAILY [facility] Last Admin: 09/23/17 08:00 Dose: 40 mg Simvastatin (Zocor) 10 mg PO BEDTIME [facility] Last Admin: 09/22/17 20:00 Dose: 10 mg Tamsulosin HCl (Flomax) 0.8 mg PO BEDTIME [facility] Last Admin: 09/22/17 19:59 Dose: 0.8 mg Tiotropium [place] (Spiriva Handihaler) 18 mcg INH DAILY [facility] Last Admin: 09/23/17 08:15 Dose: 1 cap Discontinued Medications Albuterol (Proventil Neb Soln) 2.5 mg NEB ONETIME ONE Stop: 09/21/17 02:36 Last Admin: 09/21/17 02:44 Dose: 2.5 mg Albuterol (Proventil Neb Soln) 2.5 mg NEB ONETIME ONE Stop: 09/21/17 03:45 Last Admin: 09/21/17 04:00 Dose: 2.5 mg Levofloxacin/Dextrose 500 mg/ (Premix) 100 mls @ 100 mls/hr IV ONETIME ONE Stop: 09/21/17 04:42 Last Admin: 09/21/17 04:11 Dose: 100 mls/hr Sodium Chloride (Normal Saline) 1,000 mls @ 150 mls/hr IV ASDIRECTED [facility] Last Admin: 09/21/17 04:10 Dose: 150 mls/hr Levofloxacin/Dextrose 500 mg/ (Premix) 100 mls @ 100 mls/hr IV Q24H [facility] Stop: 09/29/17 04:01 Last Admin: 09/22/17 03:35 Dose: 100 mls/hr Sodium Chloride (Normal Saline) 1,000 mls @ 100 mls/hr IV ASDIRECTED [facility] Methylprednisolone Sodium Succinate (Solu-Medrol) 125 mg IVPUSH ONETIME ONE Stop: 09/21/17 02:42 Last Admin: 09/21/17 02:59 Dose: 125 mg Methylprednisolone Sodium Succinate (Solu-Medrol) 62.5 mg IVPUSH Q6H [facility] Last Admin: 09/21/17 15:47 Dose: 62.5 mg Methylprednisolone Sodium Succinate (Solu-Medrol) 40 mg IVPUSH Q8H [facility] Last Admin: 09/22/17 08:29 Dose: 40 mg Sodium Chloride (Saline Flush) 10 ml FLUSH ASDIRECTED PRN PRN Reason: Keep Vein Open Last Admin: 09/21/17 02:59 Dose: 10 ml Zolpidem Tartrate (Ambien) 5 mg PO BEDTIME PRN PRN Reason: Sleep *Q Meaningful Use (DIS) - VTE *Q VTE Criteria *Q: - Stroke *Q Stroke Criteria *Q: - AMI *Q AMI Criteria *Q:
[2017-09-23 11:23] VITALS: BP 149/60
== END 2017-09-23 13:15 | disposition home health service (06) | DRG 202 ==
LOC: JP.ED 02:13 → JP.MS 05:14
PROVIDERS: ADMIT Hospitalist; ATTEND Hospitalist
DX: J20.9 Acute bronchitis, unspecified (principal); J44.0 Chronic obstructive pulmonary disease with (acute) lower respiratory infection; J44.1 Chronic obstructive pulmonary disease with (acute) exacerbation; I10 Essential (primary) hypertension; Z87.891 Personal history of nicotine dependence; R05 Cough; R06.02 Shortness of breath; R84.5 Abnormal microbiological findings in specimens from respiratory organs and thorax; M19.90 Unspecified osteoarthritis, unspecified site; E78.00 Pure hypercholesterolemia, unspecified; H91.90 Unspecified hearing loss, unspecified ear; H54.7 Unspecified visual loss; Z79.82 Long term (current) use of aspirin; Z79.52 Long term (current) use of systemic steroids; Z96.642 Presence of left artificial hip joint
CPT/HCPCS: 36415; 71010 ×2; 80053; 85025; 87070; 87077; 87186; 87205; 94640 ×2; 99284; J1956; J2930; J7040; J7050; 97110-GP; 97116-GP; 97162-GP; 97165-GO; 97530-GP; A9270-GY; J1650; J2920; J7620